=== PATIENT | female | born 1965 | race American Indian/Alaskan Native ===

== ENCOUNTER 2019-06-14 08:55 | Outpatient (CLI) | payer OTHER ==
--- NOTE | 2019-06-15 13:10 | Mammography Report ---
DIGITAL SCREENING MAMMOGRAM WITH CAD, 06/14/2019 INDICATION: Routine screening mammography. TECHNIQUE: Digital bilateral 2D mammography was obtained in the craniocaudal and mediolateral obliq ue projections. This examination was interpreted with the benefit of Computer-Aided Detection analysi s. COMPARISON: None. FINDINGS: Breast Density: There are scattered areas of fibroglandular density. There is no evidence of dominant mass, suspicious calcifications or architectural distortion in the r ight breast. The left breast contains a 9 mm nodule just superior and lateral to the nipple at a dept h of 4.5 cm. Ultrasound is recommended for further evaluation. IMPRESSION: BI-RADS Category 0: Incomplete. Needs additional imaging evaluation and/or prior mammograms for fransisco rison. A "normal" or negative report should not discourage follow up or biopsy of a clinically significant f inding. A written summary of these findings will be mailed to the patient. The patient will be entered into a mammography reporting system which will generate a reminder letter for the patient's next appointmen t at the appropriate interval. The [employer] recommends yearly mammograms starting at age 40 and continuing as l maris as a woman is in good health. Breast MRI is recommended for women with an approximate 20-25% or greater lifetime risk of breast cancer, including women with a strong family history of breast or ova anirudh cancer or who have been treated for Hodgkin's disease. Signer Name: Brien Guzman MD Signed: 06/15/2019 1:06 PM Workstation Name: [id number]
== END 2019-06-14 08:56 | disposition home or self-care (01) ==
LOC: MAMMO 08:55
PROVIDERS: ATTEND Family Medicine
DX: Z12.31 Encounter for screening mammogram for malignant neoplasm of breast (principal)
CPT/HCPCS: 77067

== ENCOUNTER 2019-07-31 10:10 | Outpatient (CLI) | payer OTHER ==
--- NOTE | 2019-08-01 08:23 | Ultrasound Report ---
LEFT BREAST ULTRASOUND HISTORY: Recalled for asymmetry on screening mammogram. COMPARISON: 06/14/2019 FINDINGS: Sonographic evaluation focused upon the upper outer location of the left breast demonstrate s an irregular solid heterogeneous hypoechoic mass at 1:00 2 cm from the nipple. It measures 6 x 5 x 5 mm and correlates with the mammographic density. IMPRESSION: A suspicious 6 mm left breast mass at 1:00 2 cm from the nipple. Recommend ultrasound-guided needle b iopsy. I discussed the findings and the recommendation for needle biopsy with the patient at the time of the exam. BIRADS 4: Suspicious abnormality. Signer Name: Cameron Teran MD Signed: 08/01/2019 8:19 AM Workstation Name: [id number]
== END 2019-07-31 10:11 | disposition home or self-care (01) ==
LOC: MAMMO 10:10
PROVIDERS: ATTEND Family Medicine
DX: R92.8 Other abnormal and inconclusive findings on diagnostic imaging of breast (principal)

== ENCOUNTER 2019-09-07 08:18 | Outpatient (CLI) | payer OTHER | END 2019-09-07 08:19 | disposition home or self-care (01) | LOC: LABHHL 08:18 | PROVIDERS: ATTEND Surgery | DX: N63.21 Unspecified lump in the left breast, upper outer quadrant (principal); Z87.891 Personal history of nicotine dependence | CPT/HCPCS: 88305; 88341; 88342 ==